=== PATIENT | female | born 1965 | race African-American/Black ===

== ENCOUNTER → 2016-12-29 17:24 | Outpatient (CLI) | payer BC ==
[2015-02-09 06:19] VITALS: BMI 29.1
[~2016-12-29 17:24] MED LIST: ADIPEX-P37.5 MG PO; ESTRACE1 MG PO; MOBIC7.5 MG PO; ULTRAM50 MG PO; VITAMIN D31000 UNI2 PO; XANAX0.5 MG PO
== END | disposition home or self-care (01) ==
LOC: D.MAMMO 09:30
DX: Z12.31 Encounter for screening mammogram for malignant neoplasm of breast (principal)

== ENCOUNTER → 2020-06-25 08:00 | Outpatient (CLI) | payer MEDICAID ==
[2015-02-09 06:19] VITALS: BMI 29.1
== END | disposition home or self-care (01) ==
LOC: D.MAMMO 08:00
PROVIDERS: ATTEND Family Medicine
DX: Z12.31 Encounter for screening mammogram for malignant neoplasm of breast (principal)